=== PATIENT | female | born 1990 | race Caucasian/White ===

== ENCOUNTER 2025-03-29 11:30 | Day surgery (SDC) | payer OTHER ==
[2025-03-29] MEDS ORDERED: LIDOCAINE HCL 2% 100 MG/5 ML IJ ONE (11:31)
[2025-03-29 12:37] LABS: HCG URINE TEST NEGATIVE (NEGATIVE)
[2025-03-29] MEDS ORDERED: propofoL IV ONE (13:58)
--- NOTE | 2025-03-29 15:10 | XRAY ---
Indication: Bilateral L4-S1 MBB. Intraoperative fluoroscopy provided for 14 seconds. Single digital spot image submitted for interpretation demonstrates posterior needle tips projecting over expected left and right L4-S1 nerve roots. Correlate with intraoperative findings/report.
--- NOTE | 2025-03-29 15:12 | XRAY ---
14 seconds of fluoroscopy was used in surgery for a bilateral L4-S1 MBB.
[2025-03-29] MEDS ORDERED: Lactated Ringers 1,000 ML IV ONE (17:04)
== END 2025-03-29 14:26 | disposition home or self-care (01) ==
LOC: SDC-PAIN 11:30
PROVIDERS: ATTEND Psychiatry & Neurology Pain Medicine
DX: M47.817 Spondylosis without myelopathy or radiculopathy, lumbosacral region (principal)